=== PATIENT | male | born 1990 | race Caucasian/White ===

== ENCOUNTER 2018-09-08 15:08 | Emergency (ER) | payer OTHER ==
[2018-09-08] MEDS ORDERED: LISD50TA (15:44)
[2018-09-08] MEDS ORDERED: GLYCOPYRROLATE 0.2MG/ML 1 ML INJ IVP ONE (15:55)
[2018-09-08] MEDS ORDERED: ONDANSETRON 4 MG/2 ML VIAL IVP ONE (15:55)
[2018-09-08] MEDS ORDERED: NS(*) 0.9% 1000 ML BAG 1,000 ML IV ONE (15:55)
--- NOTE | 2018-09-08 15:55 | ER Report ---
History and Physical Time Seen By MD: 15:50 Hx. of Stated Complaint: PT REPORTS EPIGASTRIC PAIN ONSET LAST NIGHT WITH HEAD AND NECK PAIN HPI/ROS CHIEF COMPLAINT: Vomiting HISTORY OF PRESENT ILLNESS: Patient presents with chief complaint of vomiting multiple times since last night; bilious, non bloody. No diarrhea. Abdominal pain throughout. Non focal. REVIEW OF SYSTEMS: Constitutional: chills Eyes: No discharge. ENT: No sore throat. Cardiovascular: No chest pain, no palpitations. Respiratory: No cough, no shortness of breath. Gastrointestinal: above Genitourinary: No hematuria.No diarrhea Musculoskeletal: No back pain. Skin: No rashes. Neurological: No headache. Remainder of the 14 system rev: Yes Allergies: Coded Allergies: iodine (Verified Allergy, Unknown, 09/08/18) Home Meds Reported Medications Lisdexamfetamine Dimesylate (Vyvanse) 50 Mg Tab.chew 09/08/18 Constitutional Vital Sign - Last 24 Hours 09/08/18 15:41 Temp 98.0 Pulse 80 Resp 16 B/P (MAP) 133/95 Pulse Ox 98 O2 Delivery Room Air Physical Exam General Appearance: The patient is alert, has no immediate need for airway protection and no signs of toxicity. Eyes: Pupils equal and round no pallor or injection. ENT, Mouth: Mucous membranes are moist. Respiratory: There are no retractions, lungs are clear to auscultation. Cardiovascular: Regular rate and rhythm. Gastrointestinal: hyperactive bowel sounds, no focal ttp Neurological: alert, oriented, moves all extremities Skin: Musculoskeletal: Extremities are nontender, nonswollen and have full range of motion. DIFFERENTIAL DIAGNOSIS: After history and physical exam differential diagnosis was considered for abdominal pain including but not limited to appendicitis, cholecystitis, gastritis and urinary tract infection. Medical Decision Making ED Course/Re-evaluation ED Course Pt presents with sgs/symptoms of enteritis, likely toxin-mediated. No e/o acute abdomen. Rpt exam shows nontender abdomen, and improved symptoms, camilla po. At this point, pt is comfortable with d/c. Will d/c with SRP's. Decision to Disposition Date: Sep 08, 2018 Decision to Disposition Time: 16:40 Depart Departure Latest Vital Signs Vital Signs Date Time Temp Pulse Resp B/P (MAP) Pulse Ox O2 Delivery O2 Flow Rate FiO2 09/08/18 15:41 98.0 80 16 133/95 98 Room Air Impression: Primary Impression: Vomiting Condition: Improved Disposition: HOME OR SELF-CARE New Scripts Ondansetron Hcl (ZOFRAN) 4 Mg Tablet 4 MG PO Q8H for Nausea, #10 TAB Prov: MICHELLE THORPE MD 09/08/18 Dicyclomine Hcl (DICYCLOMINE HCL) 20 Mg Tablet 20 MG PO QID for PAIN, #10 TAB Prov: MICHELLE THORPE MD 09/08/18 Departure Forms: ER Transition Record, Medications Reconciliation, Off Work/School Form, School or Work Release?: School Number of days to be released: 2 Patient Portal Information Patient Instructions: Acute Nausea and Vomiting (ED) Problem Qualifiers Primary Impression: Vomiting Vomiting type: unspecified Vomiting Intractability: non-intractable Nausea presence: with nausea Qualified Codes: R11.2 - Nausea with vomiting, unspecified MICHELLE THORPE MD Sep 08, 2018 15:55
[2018-09-08 16:30] VITALS: BP 128/73
[2018-09-08] MEDS ORDERED: DICY20TA70 PO (16:41)
[2018-09-08] MEDS ORDERED: ONDA4TAB97 PO (16:41)
[2018-09-08] MEDS ORDERED: ONDANSETRON 4 MG ODT TH SL ONE (16:45)
== END 2018-09-08 16:55 | disposition home or self-care (01) ==
LOC: ER 15:44
DX: R11.2 Nausea with vomiting, unspecified (principal)
CPT/HCPCS: 96361; 96374; 96375; 99284; J2405; J3490; J7030; S0119